=== PATIENT | female | born 1945 | race Caucasian/White ===

== ENCOUNTER → 2023-01-21 | Outpatient (CLI) | payer BC, MEDICARE | LOC: ORTHO 10:15 | PROVIDERS: ATTEND Orthopaedic Surgery | DX: M16.12 Unilateral primary osteoarthritis, left hip (principal) | CPT/HCPCS: 99213 ==

== ENCOUNTER 2023-01-26 08:30 | Outpatient (CLI) | payer BC, MEDICARE ==
[~2023-01-26] VITALS: Ht 157.4 cm; Wt 76.5 kg
[2023-01-26] MEDS ORDERED: TRAM50TA3 PO (08:44)
[2023-01-26] MEDS ORDERED: LISI1TAB44 PO (08:44)
[2023-01-26 10:47] LABS: BASOPHILS % (AUTO) 0 % (0-10); EOSINOPHILS # (AUTO) 0.1 10^3/uL (0.0-0.3); EOSINOPHILS % (AUTO) 1 % (0-10); HEMATOCRIT 44 % (35-52); HEMOGLOBIN 14.4 g/dL (11.5-16.0); LYMPHOCYTES # (AUTO) 2.5 10^3/uL (1.0-4.0); LYMPHOCYTES % (AUTO) 33 % (12-44); MEAN CORPUSCULAR HEMOGLOBIN 31 pg (25-34); MEAN CORPUSCULAR HGB CONC 33 g/dL (32-36); MEAN CORPUSCULAR VOLUME 94 fL (80-99); MEAN PLATELET VOLUME 10.1 fL (9.0-12.2); MONOCYTES # (AUTO) 0.5 10^3/uL (0.0-1.0); MONOCYTES % (AUTO) 7 % (0-12); NEUTROPHILS # (AUTO) 4.5 10^3/uL (1.8-7.8); NEUTROPHILS % (AUTO) 59 % (42-75); PLATELET COUNT 273 10^3/uL (130-400); WHITE BLOOD COUNT 7.7 10^3/uL (4.3-11.0)
[2023-01-26 10:48] LABS: BILIRUBIN,URINE NEGATIVE (NEGATIVE); CLARITY,URINE CLOUDY; COLOR,URINE YELLOW; GLUCOSE, URINE (UA) NEGATIVE (NEGATIVE); KETONES,URINE NEGATIVE (NEGATIVE); LEUKOCYTE ESTERASE ,URINE 2+ (NEGATIVE); NITRITE,URINE NEGATIVE (NEGATIVE); PROTEIN,URINE NEGATIVE (NEGATIVE)
--- NOTE | 2023-01-26 10:56 | Diagnostic Imaging Report ---
INDICATION: Preoperative evaluation prior to left hip replacement COMPARISON: None FINDINGS: Frontal and lateral views of the chest demonstrate normal heart size and pulmonary vascularity. The lungs are clear. There are no signs of infiltrate, pleural effusions or pneumothoraces. The visualized osseous structures show no acute abnormalities. IMPRESSION: 1. No acute process. No signs of infiltrates, effusions or pneumothoraces. Dictated by: Dictated on workstation # [id number]
[2023-01-26 10:58] LABS: POTASSIUM 3.7 MMOL/L (3.6-5.0)
[2023-01-26 10:59] LABS: CALCIUM 9.9 MG/DL (8.5-10.1)
[2023-01-26 11:02] LABS: RBC,URINE RARE /HPF
[2023-01-26 11:03] VITALS: BP 139/82
[2023-01-26 11:03] LABS: BACTERIA,URINE LARGE /HPF; CREATININE SERUM 0.83 MG/DL (0.60-1.30); WBC,URINE 25-50 /HPF
--- NOTE | 2023-01-26 19:52 | Diagnostic Imaging Report ---
INDICATION: LEFT HIP ARTROPLASTY TECHNIQUE: 2 views of the left hip. CORRELATION STUDY: None FINDINGS: There is essentially complete obliteration of the left hip joint. There is marked sclerosis and cystic change about the acetabulum and femoral head. There is partial collapse of the superior femoral head suggesting osteonecrosis. The remainder of the osseous structures otherwise intact. Visualized left hemipelvis unremarkable. Rather significant atherosclerotic vascular calcification is noted. IMPRESSION: 1. Severely advanced osteoarthritic change left hip with essentially complete absence of joint space. Essentially zhfj-ui-ilek present. 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 Dictated by: Dictated on workstation # [id number]
== END 2023-01-26 12:14 ==
LOC: PREOP 08:30
PROVIDERS: ATTEND Orthopaedic Surgery
DX: Z01.818 Encounter for other preprocedural examination (principal); M16.12 Unilateral primary osteoarthritis, left hip
CPT/HCPCS: 36415; 71046; 73502; 80048; 81000; 85025; 87077; 87081; 87088; 93005

== ENCOUNTER 2023-02-02 06:03 | Day surgery (SDC) | payer BC, MEDICARE ==
[~2023-02-02] VITALS: Ht 157.4 cm; Wt 76.5 kg
[~2023-02-02 06:03] MED LIST: LISI1TAB44 PO; TRAM50TA3 PO
[2023-02-02 06:08] VITALS: BP 154/89
[2023-02-02] MEDS ORDERED: LACTATED RINGERS 1,000 ML IV PRN (06:15)
[2023-02-02] MEDS ORDERED: ceFAZolin INJECTION 2,000 MG in NS (IVPB) 50 ML IV ONE (06:15)
[2023-02-02] MEDS ORDERED: ROCURONIUM 50 MG/5 ML (ZEMURON) VIAL IV ONE (06:57)
[2023-02-02] MEDS ORDERED: ONDANSETRON 4 MG/2 ML (SDV) Z0FRAN ONE (06:57)
[2023-02-02] MEDS ORDERED: proPOfol 200 MG/20 ML (DIPRIVAN) VIAL IV ONE (06:57)
[2023-02-02] MEDS ORDERED: LIDOCAINE PF 2% 5 ML (XYLOCAINE) VIAL ONE (06:57)
[2023-02-02] MEDS ORDERED: fentaNYL INJ 100 MCG/2 ML AMP ONE (06:58)
[2023-02-02] MEDS ORDERED: MIDAZOLAM 2 MG/2 ML (VERSED) VIAL ONE (06:58)
== END 2023-02-02 07:25 | disposition home or self-care (01) ==
LOC: SDC 06:03 → EDSTATUS 07:30
PROVIDERS: ATTEND Orthopaedic Surgery
DX: M16.12 Unilateral primary osteoarthritis, left hip (principal); Z53.09 Procedure and treatment not carried out because of other contraindication; E11.9 Type 2 diabetes mellitus without complications
CPT/HCPCS: 36415; 82947; 83036

== ENCOUNTER 2023-02-09 06:09 | Day surgery (SDC) | payer BC, MEDICARE ==
[2023-02-09] VITALS (12 sets, daily range): BP systolic 124–158; BP diastolic 57–83
[~2023-02-09] VITALS: Ht 157.4 cm; Wt 76.5 kg
[2023-02-09] MEDS: LACTATED RINGERS 1,000 ML IV PRN ×2 (06:00→08:37)
[2023-02-09] MEDS ORDERED: ceFAZolin INJECTION 2,000 MG ONE (06:34)
[2023-02-09] MEDS ORDERED: NS (IVPB) 50 ML ONE (06:35)
[2023-02-09] MEDS ORDERED: fentaNYL INJ 100 MCG/2 ML AMP ONE (07:05)
[2023-02-09] MEDS ORDERED: ONDANSETRON 4 MG/2 ML (SDV) Z0FRAN ONE (07:05)
[2023-02-09] MEDS ORDERED: LIDOCAINE PF 2% 5 ML (XYLOCAINE) VIAL ONE (07:05)
[2023-02-09] MEDS ORDERED: proPOfol 200 MG/20 ML (DIPRIVAN) VIAL IV ONE (07:05)
[2023-02-09] MEDS ORDERED: ROCURONIUM 50 MG/5 ML (ZEMURON) VIAL IV ONE (07:05)
[2023-02-09] MEDS ORDERED: GLYCOPYRROLATE 0.2 MG/ML (ROBINUL) 2 ML VIAL ONE (07:05)
[2023-02-09] MEDS ORDERED: NEOSTIGMINE (BLOXIVERZ ) 1 MG/1ML 10 ML VIAL ONE (07:06)
[2023-02-09] MEDS ORDERED: ceFAZolin INJECTION 2,000 MG in NS (IVPB) 50 ML IV ONE (07:30)
[2023-02-09] MEDS ORDERED: TRANEXAMIC ACID 100 MG/ML 10 ML INJECTION ONE (07:35)
[2023-02-09] MEDS ORDERED: ESMOLOL 100 MG/10 ML (BREVIBLOC) VIAL ONE (07:58)
[2023-02-09] MEDS ORDERED: HYDROmorphone 2 MG/ML VIAL (DILAUDID) ONE (08:03)
[2023-02-09] MEDS ORDERED: SEVOFLURANE (ULTANE) 15 ML INHAL SOLN ONE ×4 (08:16→09:01)
[2023-02-09] MEDS ORDERED: BUPIVACAINE 0.5% 30 ML (SENSORCAINE) VIAL ONE (08:17)
--- NOTE | 2023-02-09 09:38 | Operative Report - Ortho ---
Operative Report Surgeon (s)/Grocery Supervisor (s) Surgeon SHAGUFTA PALMER MD Grocery Supervisor n/a Pre-Operative Diagnosis Left Hip Primary Osteoarthritis Post-Operative Diagnosis same Operative Report Date of Procedure: Feb 09, 2023 Name of Procedure Performed: Left Total Hip Arthroplasty Description & Findings After obtaining informed consent and marking the patient in the preoperative holding area, the patient did receive antibiotics and was taken to the operating room. General anesthesia was induced and patient was positioned in the lateral decubitus position with the left side up. Left lower extremity was prepped and draped in the usual sterile fashion. Surgical timeout was taken. Posterolateral approach was utilized. Capsule and external rotators were taken down in one layer. Hip was dislocated without difficulty. Femoral neck osteotomy was performed and femoral head was removed. Acetabulum was exposed. Labrum and soft tissue was removed from the acetabulum. Sequential reaming was began beginning with a 43 mm reamer and reaming to a 50 mm. 50 mm trial was placed and had good fit. Trial was removed and the acetabulum was lavaged with normal saline; a 50 mm cup was impacted into place and had excellent press fit. A polyethylene liner was put into place and impacted to lock; locking was verified with a freer. Attention was turned to the femoral side, a cookie cutter osteotome was used to removed bone near the greater trochanter. Canal finder was inserted followed by the lateralizing reamer. Sequential broaching was began with a 0 and was broached to a 5. Trial 127 degree neck and neutral 32 mm head were put into place. Leg lengths were grossly equal; the hip was stable in position of sleep, but had some instability in flexion and internal rotation. Head was exchanged for a +4 mm and this improved the stability. This was accepted. Hip was dislocated. Trial components were removed and the canal was irrigated. A size 5 Accolade II was impacted into place and set at the same level as the broach. A +4 32 mm ceramic head was impacted onto the kent taper of the stem. Hip was once again located and found to have grossly equal leg lengths with stability in position of sleep as well as flexion and internal rotation. Dilute betadine soak was performed. Hip was irrigated. Capsular layer was repaired with #2 Fiberwire. The fascial layer was closed with #2 StrataFix. The subcutaneous layer was closed with 2-0 Vicryl. Skin was closed with 3-0 v-loc. Wound was dressed with steri-strips, xeroform, 4x4s, ABD, and tape. Patient was placed in abduction pillow and transferred to his hospital bed without difficulty and was stable to the recovery room. Anesthesia Type General Estimated Blood Loss 500 mL Specimen(s) collected/removed None SHAGUFTA PALMER MD Feb 09, 2023 09:38
[2023-02-09] MEDS ORDERED: HYDROmorphone 2 MG/ML VIAL (DILAUDID) IV ONE (09:45)
[2023-02-09] MEDS ORDERED: morphine INJ 10 MG/ML 1ML (SYR OR VIAL) IVP ONE (09:45)
[2023-02-09] MEDS ORDERED: ONDANSETRON 4 MG/2 ML (SDV) Z0FRAN IVP PRN ×2 (09:45→11:30)
--- NOTE | 2023-02-09 10:21 | Consultation ---
HPI History of Present Illness: HPI/Chief Complaint Chief complaint: Medical management following left hip replacement uncomplicated by Dr. Mckeon HPI: This is a 77-year-old female who presented to room 416 following an uncomplicated left total hip replacement. She has a recent history of new diabetes so we will initiate diabetic education while she is here. Glucometer checks will be ordered. Patient reports no pain currently or nausea. Source: patient Exam Limitations: no limitations Date Seen 02/09/23 Attending Physician Suzan Denton DO PCP Admitting Physician: Ke Mckeon MD Attending Physician: Ke Mckeon MD Referring Physician Date of Admission Home Medications & Allergies Home Medications Reviewed patient Home Medication Reconciliation performed by pharmacy medication reconciliations avionics systems technician and/or nursing. Patients Allergies have been reviewed. Allergies Allergies Coded Allergies No Known Drug Allergies (Unverified01/26/23) Past Marpbkb-Poeweo-Rphtra Hx Past Med/Social Hx: Reviewed Nursing Past Med/Soc Hx, Reviewed and Corrections made Patient Social History Marrital Status: Employed/Student: employed Alcohol Use: Denies Use Recreational Drug Use: No Smoking Status: Former Smoker Former Smoker, Quit: Jan 26, 1983 2nd Hand Smoke Exposure: No Recent Foreign Travel: No Contact w/other who traveled: No Recent Hopitalizations: No Seasonal Allergies Seasonal Allergies: No Past Medical History Surgeries: Adenoidectomy, Liver Transplant, Tonsillectomy Currently Using CPAP: No Cardiac: Hypertension Sexually Transmitted Disease: No HIV/AIDS: No Female Reproductive Disorders: Denies Hysterectomy Genitourinary: Kidney Stones Musculoskeletal: Arthritis, Fractures Endocrine: Diabetes, Non-Insulin dep Are Your Blood Sugars Over 250: No History of Blood Disorders: No Review of Systems Constitutional: see HPI, malaise, weakness Musculoskeletal: joint pain Physical Exam Physical Exam Vital Signs Vital Signs - First Documented 02/09/23 06:00 Temp 36.7 Pulse 83 Resp 18 B/P (MAP) 150/83 (105) Pulse Ox 98 O2 Delivery Room Air Capillary Refill : Less Than 3 Seconds Height, Weight, BMI Height: '" Weight: lbs. oz. kg; 30.87 BMI Method: General Appearance: No Apparent Distress, WD/WN Eyes: Bilateral Eye Normal Inspection, Bilateral Eye PERRL HEENT: PERRL/EOMI, Normal ENT Inspection, Pharynx Normal Neck: Full Range of Motion, Normal Inspection, Non Tender, Supple, Carotid Bruit Respiratory: Chest Non Tender, Lungs Clear, Normal Breath Sounds, No Accessory Muscle Use, No Respiratory Distress Cardiovascular: Regular Rate, Rhythm, No Edema, No Gallop, No JVD, No Murmur, Normal Peripheral Pulses Gastrointestinal: Normal Bowel Sounds, No Organomegaly, No Pulsatile Mass, Non Tender, Soft Back: Normal Inspection, No CVA Tenderness, No Vertebral Tenderness Extremity: Normal Capillary Refill, Normal Inspection, Non Tender, No Calf Tend erness, No Pedal Edema, Other (limited ROM legs post op) Neurologic/Psychiatric: Alert, Oriented x3, No Motor/Sensory Deficits, Normal Mood/Affect Skin: Normal Color, Warm/Dry Lymphatic: No Adenopathy Results Results/Procedures Labs Patient resulted labs reviewed. Assessment/Plan Assessment and Plan Assess & Plan/Chief Complaint Assessment: Status post left hip replacement uncomplicated by Dr. Mckeon Hypertension Recent diagnosis of diabetes Plan: Diabetes education Accu-Cheks Monitor morning labs Pain control PT and OT YARELIS SIMON DO Feb 09, 2023 10:21
[2023-02-09] MEDS ORDERED: ACETAMINOPHEN 500 MG TAB (TYLENOL) PO PRN (11:30)
[2023-02-09] MEDS ORDERED: MILK OF MAGNESIA 400 MG/5 ML 30 ML UDC PO PRN (11:30)
[2023-02-09] MEDS ORDERED: BISACODYL 5 MG (DULCOLAX) TABLET PO PRN (11:30)
[2023-02-09] MEDS ORDERED: morphine INJ 4 MG/ML 1 ML (VIAL/SYRINGE) IVP PRN (11:30)
[2023-02-09] MEDS: 1/2 NS IV SOLUTION 1,000 ML IV SCH (12:26)
[2023-02-09] MEDS: ceFAZolin INJECTION 2,000 MG in NS (IVPB) 50 ML IV SCH ×2 (13:14→20:14)
--- NOTE | 2023-02-09 13:56 | Physical Therapy Evaluation ---
PT Evaluation-General Medical Diagnosis Admission Date February 09, 2023 Medical Diagnosis: left hip OA Onset Date: Feb 09, 2023 Therapy Diagnosis Therapy Diagnosis: impaired mobility Precautions Precautions/Isolations: Standard Precautions Weight Bear Status Right Lower Extremity: Right Full Weight Bearing Left Lower Extremity: Left Weight Bearing/Tolerated Referral Physician: Mike Reason for Referral: Evaluation/Treatment Medical History Pertinent Medical History: DM, HTN Current History s/p elective left THR Reviewed History: Yes Social History Home: Single Level Current Living Status: Spouse Prior Prior Level of Function SCALE: Activities may be completed with or without assistive devices. 6-Wpyjpmemrr-zxtwjhr completes the activity by him/herself with no assistance from a helper. 5-Set-up or Clean-up Assistance-helper sets up or cleans up; patient completes activity. [place] assists only prior to or following the activity. 4-Supervision or Touching Assistance-helper provides verbal cues and/or touching/steadying and/or contact guard assistance as patient completes a ctivity. Assistance may be provided throughout the activity or intermittently. 3-Partial/Moderate Assistance-helper does LESS THAN HALF the effort. [place] lifts, holds or supports trunk or limbs, but provides less than half the effort. 2-Substantial/Maximal Assistance-helper does MORE THAN HALF the effort. [place] lifts or holds trunk or limbs and provides more than half the effort. 7-Opermiubg-ntdwvd does ALL the effort. Patient does none of the effort to complete the activity. Or, the assistance of 2 or more helpers is required for the patient to complete the activity. If activity was not attempted, code reason: 7-Patient Refused. 9-Not Applicable-not attempted and the patient did not perform the activity before the current illness, exacerbation or injury. 10-Not Attempted due to Environmental Limitations-(lack of equipment, weather restraints, etc.). 88-Not Attempted due to Medical Conditions or Safety Concerns. Bed Mobility: 6 Transfers (B,C,W/C): 6 Gait: 6 Stairs: 6 Indoor Mobility (Ambulation): Independent Stairs: Independent Prior Devices Use: None PT Evaluation-Current Subjective Patient is very agreeable to participate with therapy. Pain Numeric Pain Scale: 5-Moderate Pain Location: Left Location Body Site: Hip Pain Description: Acute Objective Patient Orientation: Normal For Age Attachments: Patiño Catheter, IV ROM/Strength ROM Lower Extremities left hip precautions/right LE WFL Strength Lower Extremities left LE 3+/5 grossly/right LE 4/5 grossly Integumentary/Posture Bladder Incontinence: Patiño Cath Posture WFL Neuromuscular (Tone, Coordination, Reflexes) grossly intact Sensory Vision: Functional Hearing: Functional Transfers Sit to Lying (QC): 3 Lying to Sitting/Side of Bed(Q: 3 Sit to Stand (QC): 4 Gait Mode of Locomotion: Walk Anticipated Mode of Locomotion: Walk Walk 10 feet (QC): 4 Walk 50 ft with 2 Turns(QC): 4 Gait Assistive Device: FWW Comments/Gait Description slow, step to pattern Balance Sitting Static: Normal Sitting Dynamic: Normal Standing Static: Fair Standing Dynamic: Fair Assessment/Needs Patient will benefit from skilled PT to address functional strength and mobility to improve current LOF to safely return to home at maximum LOF. Rehab Potential: Good PT Longterm Goals Application Release Manager Goals PT Application Release Manager Goals Time Frame: Feb 14, 2023 Roll Left & Right (QC): 6 Sit to Lying (QC): 6 Lying-Sitting on Side/Bed(QC): 6 Sit to Stand (QC): 6 Chair/Ack-wh-Qfiog Xfer(QC): 6 Toilet Transfer (QC): 6 Walk 10 feet (QC): 6 Walk 50ft with 2 Turns (QC): 6 Walk 150 ft (QC): 6 PT Plan Treatment/Plan Treatment Plan: Continue Plan of Care Treatment Plan: Bed Mobility, Education, Functional Activity Elena, Functional Strength, Gait, Safety, Therapeutic Exercise, Transfers Treatment Duration: Feb 14, 2023 Frequency: 11 times per week Estimated Hrs Per Day: .5 hour per day Patient and/or Family Agrees t: Yes Time Time In: 1328 Time Out: 1346 DATE: Feb 09, 2023 Total Billed Treatment Time: 18 [facility] R[facility]Y [facility] PT Feb 09, 2023 13:56
[2023-02-09] MEDS: inSUlin ASPART (NovoLOG) 1 UNIT/0.01 ML (CHARGE PER UNIT) SC SCH ×2 (16:44→20:17)
[2023-02-09] MEDS: CELECOXIB 100 MG (CeleBREX) CAP PO SCH (20:13)
[2023-02-09] MEDS: DOCUSATE SODIUM 100 MG (COLACE) CAP PO SCH (20:14)
[2023-02-09] MEDS: ASPIRIN E.C. 81 MG (ECOTRIN) TAB PO SCH (20:15)
[2023-02-10] MEDS: ceFAZolin INJECTION 2,000 MG in NS (IVPB) 50 ML IV SCH (01:23)
[2023-02-10] MEDS: 1/2 NS IV SOLUTION 1,000 ML IV SCH (01:23)
[2023-02-10 03:08] VITALS: BP 117/59
[2023-02-10 05:42] LABS: BASOPHILS % (AUTO) 0 % (0-10); EOSINOPHILS % (AUTO) 0 % (0-10); HEMATOCRIT 32 % (35-52); HEMOGLOBIN 10.5 g/dL (11.5-16.0); LYMPHOCYTES # (AUTO) 1.9 10^3/uL (1.0-4.0); LYMPHOCYTES % (AUTO) 16 % (12-44); MEAN CORPUSCULAR HEMOGLOBIN 31 pg (25-34); MEAN CORPUSCULAR HGB CONC 33 g/dL (32-36); MEAN CORPUSCULAR VOLUME 94 fL (80-99); MEAN PLATELET VOLUME 10.2 fL (9.0-12.2); MONOCYTES % (AUTO) 8 % (0-12); NEUTROPHILS # (AUTO) 8.8 10^3/uL (1.8-7.8); NEUTROPHILS % (AUTO) 75 % (42-75); PLATELET COUNT 230 10^3/uL (130-400); WHITE BLOOD COUNT 11.8 10^3/uL (4.3-11.0)
[2023-02-10 05:48] LABS: ALBUMIN 3.1 GM/DL (3.2-4.5)
[2023-02-10 05:49] LABS: POTASSIUM 3.7 MMOL/L (3.6-5.0)
[2023-02-10 05:51] LABS: TOTAL PROTEIN 5.3 GM/DL (6.4-8.2)
[2023-02-10 05:53] LABS: BILIRUBIN,TOTAL 0.7 MG/DL (0.1-1.0)
[2023-02-10 05:55] LABS: CREATININE SERUM 0.72 MG/DL (0.60-1.30)
[2023-02-10] MEDS: inSUlin ASPART (NovoLOG) 1 UNIT/0.01 ML (CHARGE PER UNIT) SC SCH ×4 (06:21→20:24)
[2023-02-10] MEDS: MULTIVIT W/MINERALS TAB (THERAGRAN M) PO SCH (06:21)
[2023-02-10 07:30] VITALS: BP 112/56
[2023-02-10] MEDS ORDERED: ASPIRIN 325 MG (5 GR) TABLET PO SCH (08:00)
[2023-02-10] MEDS: HydroCHLOROthiazide CAP/TABLET 12.5 MG TAB PO SCH (09:13)
[2023-02-10] MEDS: lisINopril 10 MG (PRINIVIL) TABLET PO SCH (09:13)
[2023-02-10] MEDS: ASPIRIN E.C. 81 MG (ECOTRIN) TAB PO SCH ×2 (09:13→20:23)
[2023-02-10] MEDS: CELECOXIB 100 MG (CeleBREX) CAP PO SCH ×2 (09:13→20:24)
[2023-02-10] MEDS: DOCUSATE SODIUM 100 MG (COLACE) CAP PO SCH ×2 (09:13→20:23)
--- NOTE | 2023-02-10 09:28 | Progress Note - Ortho ---
Progress Note Subjective Date of Exam 02/10/23 Chief Complaint POD #1 L SANTIAGO HPI/Events since last exam doing well overall, was up and walked yesterday after surgery, pain controlled Review of Systems - Allergies: Coded Allergies: No Known Drug Allergies (Unverified , 01/26/23) Home Meds Reported Medications Lisinopril/Hydrochlorothiazide (Lisinopril-Hctz 10-12.5 mg Tab) 10 Mg-12.5 Mg Tablet, 1 EACH PO DAILY, TAB 01/26/23 Discontinued Reported Medications Tramadol HCl (Tramadol HCl) 50 Mg Tablet, 50 MG PO TIDAC, TAB 01/26/23 Objective Exam L Hip: Dressing C/D/I, +DF of ankle, no s/s of DVT Vital Signs Vital Signs Date Time Temp Pulse Resp B/P (MAP) Pulse Ox O2 Delivery O2 Flow Rate FiO2 02/10/23 07:30 36.7 83 18 112/56 (74) 93 Room Air 02/10/23 03:08 37.1 83 18 117/59 (78) 93 Room Air 0.00 0.00 02/09/23 23:03 36.5 92 18 124/57 (79) 95 Room Air 0.00 0.00 02/09/23 20:10 Room Air 02/09/23 19:16 36.8 89 18 124/61 (82) 94 Room Air 02/09/23 16:45 36.8 87 18 135/75 (95) 93 Room Air 02/09/23 15:56 Room Air 02/09/23 10:35 36.2 78 17 158/79 (105) 100 Nasal Cannula 2.00 02/09/23 10:30 Nasal Cannula 2.00 02/09/23 10:30 36.8 18 143/65 (91) 98 Nasal Cannula 2.00 02/09/23 10:20 18 150/68 (95) 98 Nasal Cannula 2.00 02/09/23 10:16 Nasal Cannula 2.00 02/09/23 10:11 Nasal Cannula 2.00 02/09/23 10:10 18 140/63 (88) 93 Room Air 02/09/23 10:08 Room Air 02/09/23 10:00 OxyMask 3.00 02/09/23 10:00 18 148/63 (91) 99 OxyMask 3.00 02/09/23 09:59 OxyMask 6.00 02/09/23 09:50 18 135/64 (87) 98 OxyMask 6.00 02/09/23 09:50 OxyMask 6.00 02/09/23 09:40 OxyMask 6.00 02/09/23 09:40 18 133/64 (87) 98 OxyMask 6.00 02/09/23 09:30 OxyMask 6.00 02/09/23 09:30 37.5 16 135/69 (91) 98 OxyMask 6.00 I & O 02/10/23 07:00 Intake Total 3430 ml Output Total 2200 ml Balance 1230 ml Lab Results Laboratory Tests 02/09/23 16:27: Glucometer 196H 02/09/23 20:14: Glucometer 164H 02/10/23 05:09: Glucometer 201H 02/10/23 05:22: White Blood Count 11.8H, Red Blood Count 3.34L, Hemoglobin 10.5L, Hematocrit 32L , Mean Corpuscular Volume 94, Mean Corpuscular Hemoglobin 31, Mean Corpuscular Hemoglobin Concent 33, Red Cell Distribution Width 12.4, Platelet Count 230, Mean Platelet Volume 10.2, Immature Granulocyte % (Auto) 1, Neutrophils (%) (Auto) 75, Lymphocytes (%) (Auto) 16, Monocytes (%) (Auto) 8, Eosinophils (%) (Auto) 0, Basophils (%) (Auto) 0, Neutrophils # (Auto) 8.8H, Lymphocytes # (Auto) 1.9, Monocytes # (Auto) 1.0, Eosinophils # (Auto) 0.0, Basophils # (Auto) 0.0, Immature Granulocyte # (Auto) 0.1, Sodium Level 133L, Potassium Level 3.7, Chloride Level 103, Carbon Dioxide Level 22, Anion Gap 8, Blood Urea Nitrogen 6L , Creatinine 0.72, Estimat Glomerular Filtration Rate 87, BUN/Creatinine Ratio 8, Glucose Level 204H, Calcium Level 8.0L, Corrected Calcium 8.7, Total Bilirubin 0.7, Aspartate Amino Transf (AST/SGOT) 17, Alanine Aminotransferase (ALT/SGPT) 14, Alkaline Phosphatase 72, Total Protein 5.3L, Albumin 3.1L Microbiology 02/09/23 MRSA Screen - Final, Complete MRSA not isolated Imaging Postop AP pelvis reviewed and demonstrated appropriate position of components without complication Assessment and Plan Assessment L Hip OA s/p SANTIAGO Problem List L Hip OA s/p SANTIAGO Plan PT/OT Posterior hip precautions DVT prophylaxis Plan for home tomorrow Final Diagonsis L Hip OA s/p SANTIAGO Level of the visit: Level 3 (postop global) SHAGUFTA PALMER MD Feb 10, 2023 09:28
--- NOTE | 2023-02-10 10:08 | Physical Therapy Daily Note ---
PT Daily Note-Current Subjective Patient agrees to PT. Pain Numeric Pain Scale: 5-Moderate Pain Location: Left Location Body Site: Hip Pain Description: Acute Section J - Health Conditions 1. Rarely or not at all 2. Occasionally 3. Frequently 4. Almost constantly 8. Unable to answer Pain Effect on Sleep: 1 Pain Interference with Therapy: 1 Pain Interference w/Day-to-Day: 1 Mental Status Patient Orientation: Normal For Age Transfers SCALE: Activities may be completed with or without assistive devices. 0-Zyxzzmwbao-gbinvks completes the activity by him/herself with no assistance from a helper. 5-Set-up or Clean-up Assistance-helper sets up or cleans up; patient completes activity. [place] assists only prior to or following the activity. 4-Supervision or Touching Assistance-helper provides verbal cues and/or touching/steadying and/or contact guard assistance as patient completes activity. Assistance may be provided throughout the activity or intermittently. 3-Partial/Moderate Assistance-helper does LESS THAN HALF the effort. [place] lifts, holds or supports trunk or limbs, but provides less than half the effort. 2-Substantial/Maximal Assistance-helper does MORE THAN HALF the effort. [place] lifts or holds trunk or limbs and provides more than half the effort. 9-Yfeagyefk-mddcox does ALL the effort. Patient does none of the effort to complete the activity. Or, the assistance of 2 or more helpers is required for the patient to complete the activity. If activity was not attempted, code reason: 7-Patient Refused. 9-Not Applicable-not attempted and the patient did not perform the activity before the current illness, exacerbation or injury. 10-Not Attempted due to Environmental Limitations-(lack of equipment, weather restraints, etc.). 88-Not Attempted due to Medical Conditions or Safety Concerns. Lying to Sitting/Side of Bed(Q: 6 Sit to Stand (QC): 5 Chair/Exw-lz-Bthsi Xfer(QC): 5 Weight Bearing Right Lower Extremity: Right Full Weight Bearing Left Lower Extremity: Left Weight Bearing/Tolerated Gait Training Distance: 300' Walk 10 feet (QC): 5 Walk 50 ft with 2 Turns(QC): 5 Walk 150 ft (QC): 5 Stair Training Stair Training: Handrails/: 2 handrails #of Steps: 4 1 Step (curb) (QC): 4 4 Steps (QC): 4 Stairs: Pattern: Step to Exercises Supine Ex: Ankle pumps, Quad Set, Heel Slides Supine Reps: 12 Seated Therapy Exercises: Long arc quads Seated Reps: 15 Assessment Patient progressing with treatment plan. Patient is up in recliner with needs met. Patient to dismiss to home tomorrow. PT [employer] Goals Senior Living Goals PT [employer] Goals Time Frame: Feb 14, 2023 Roll Left & Right (QC): 6 Sit to Lying (QC): 6 Lying-Sitting on Side/Bed(QC): 6 Sit to Stand (QC): 6 Chair/Nbr-ni-Bsbui Xfer(QC): 6 Toilet Transfer (QC): 6 Walk 10 feet (QC): 6 Walk 50ft with 2 Turns (QC): 6 Walk 150 ft (QC): 6 PT Plan Treatment/Plan Treatment Plan: Continue Plan of Care Treatment Plan: Bed Mobility, Education, Functional Activity Elena, Functional Strength, Gait, Safety, Therapeutic Exercise, Transfers Treatment Duration: Feb 14, 2023 Frequency: 11 times per week Estimated Hrs Per Day: .5 hour per day Patient and/or Family Agrees t: Yes Time Time In: 930 Time Out: 953 DATE: Feb 10, 2023 Total Billed Treatment Time: 23 Total Billed Treatment 1 visit FA x 2 23 min RANDY HILL PT Feb 10, 2023 10:08
--- NOTE | 2023-02-10 10:25 | Progress Note ---
Subjective Date Seen by a Provider: Feb 10, 2023 Time Seen by a Provider: 10:00 Subjective/Events-last exam Patient doing really well Working with therapy Pain is controlled check meds and labs Blood sugars are reasonable we will follow-up with PCP for diabetes Review of Systems General: Fatigue, Malaise Musculoskeletal: leg pain Objective Exam Last Set of Vital Signs Vital Signs Date Time Temp Pulse Resp B/P (MAP) Pulse Ox O2 Delivery O2 Flow Rate FiO2 02/10/23 07:30 36.7 83 18 112/56 (74) 93 Room Air 02/10/23 03:08 0.00 0.00 Capillary Refill : Less Than 3 Seconds I&O Intake and Output 02/10/23 00:00 Intake Total 2180 ml Output Total 1900 ml Balance 280 ml Intake Oral 1080 ml IV Total 1100 ml Output Urine Total 1400 ml Estimated Blood Loss 500 ml General: Alert, Oriented X3, Cooperative, No Acute Distress Lungs: Clear to Auscultation, Normal Air Movement Heart: Regular Rate, Normal S1, Normal S2, No Murmurs Psych/Mental Status: Mental Status NL, Mood NL Results Lab Laboratory Tests 02/09/23 16:27: Glucometer 196H 02/09/23 20:14: Glucometer 164H 02/10/23 05:09: Glucometer 201H 02/10/23 05:22: White Blood Count 11.8H, Red Blood Count 3.34L, Hemoglobin 10.5L, Hematocrit 32L , Mean Corpuscular Volume 94, Mean Corpuscular Hemoglobin 31, Mean Corpuscular Hemoglobin Concent 33, Red Cell Distribution Width 12.4, Platelet Count 230, Mean Platelet Volume 10.2, Immature Granulocyte % (Auto) 1, Neutrophils (%) (Auto) 75, Lymphocytes (%) (Auto) 16, Monocytes (%) (Auto) 8, Eosinophils (%) (Auto) 0, Basophils (%) (Auto) 0, Neutrophils # (Auto) 8.8H, Lymphocytes # (Auto) 1.9, Monocytes # (Auto) 1.0, Eosinophils # (Auto) 0.0, Basophils # (Auto) 0.0, Immature Granulocyte # (Auto) 0.1, Sodium Level 133L, Potassium Level 3.7, Chloride Level 103, Carbon Dioxide Level 22, Anion Gap 8, Blood Urea Nitrogen 6L , Creatinine 0.72, Estimat Glomerular Filtration Rate 87, BUN/Creatinine Ratio 8 , Glucose Level 204H, Calcium Level 8.0L, Corrected Calcium 8.7, Total Bilirubin 0.7, Aspartate Amino Transf (AST/SGOT) 17, Alanine Aminotransferase (ALT/SGPT) 14, Alkaline Phosphatase 72, Total Protein 5.3L, Albumin 3.1L Microbiology 02/09/23 MRSA Screen - Final, Complete MRSA not isolated Assessment/Plan Assessment/Plan Assess & Plan/Chief Complaint Assessment: Status post left hip replacement uncomplicated by Dr. Mckeon Hypertension Recent diagnosis of diabetes Plan: Diabetes education Accu-Cheks Monitor morning labs Pain control PT and OT YARELIS SIMON DO Feb 10, 2023 10:25
[2023-02-10 11:46] VITALS: BP 117/59
--- NOTE | 2023-02-10 14:07 | Physical Therapy Daily Note ---
PT Daily Note-Current Subjective Patient agrees to PT. Pain Numeric Pain Scale: 5-Moderate Pain Location: Left Location Body Site: Hip Pain Description: Acute Section J - Health Conditions 1. Rarely or not at all 2. Occasionally 3. Frequently 4. Almost constantly 8. Unable to answer Pain Effect on Sleep: 1 Pain Interference with Therapy: 1 Pain Interference w/Day-to-Day: 1 Mental Status Patient Orientation: Normal For Age Transfers SCALE: Activities may be completed with or without assistive devices. 3-Ibkmaqwnru-fgiyiie completes the activity by him/herself with no assistance from a helper. 5-Set-up or Clean-up Assistance-helper sets up or cleans up; patient completes activity. [place] assists only prior to or following the activity. 4-Supervision or Touching Assistance-helper provides verbal cues and/or touching/steadying and/or contact guard assistance as patient completes activity. Assistance may be provided throughout the activity or intermittently. 3-Partial/Moderate Assistance-helper does LESS THAN HALF the effort. [place] lifts, holds or supports trunk or limbs, but provides less than half the effort. 2-Substantial/Maximal Assistance-helper does MORE THAN HALF the effort. [place] lifts or holds trunk or limbs and provides more than half the effort. 5-Ilosvstza-jifmhn does ALL the effort. Patient does none of the effort to complete the activity. Or, the assistance of 2 or more helpers is required for the patient to complete the activity. If activity was not attempted, code reason: 7-Patient Refused. 9-Not Applicable-not attempted and the patient did not perform the activity before the current illness, exacerbation or injury. 10-Not Attempted due to Environmental Limitations-(lack of equipment, weather restraints, etc.). 88-Not Attempted due to Medical Conditions or Safety Concerns. Sit to Lying (QC): 6 Lying to Sitting/Side of Bed(Q: 6 Sit to Stand (QC): 6 Toilet Transfer (QC): 6 Weight Bearing Right Lower Extremity: Right Full Weight Bearing Left Lower Extremity: Left Weight Bearing/Tolerated Gait Training Distance: 300' Walk 10 feet (QC): 5 Walk 50 ft with 2 Turns(QC): 5 Walk 150 ft (QC): 5 Gait Assistive Device: FWW slow, reciprocal pattern, slightly antalgic Exercises Supine Ex: Ankle pumps, Quad Set, Heel Slides Supine Reps: 15 Assessment Patient much improved this p.m. and returned to bed after independently toileting and brushing teeth. Plan dismissal to home tomorrow. PT Complaint Investigations Officer Goals Longterm Goals PT Complaint Investigations Officer Goals Time Frame: Feb 14, 2023 Roll Left & Right (QC): 6 Sit to Lying (QC): 6 Lying-Sitting on Side/Bed(QC): 6 Sit to Stand (QC): 6 Chair/Wgg-zs-Hozzw Xfer(QC): 6 Toilet Transfer (QC): 6 Walk 10 feet (QC): 6 Walk 50ft with 2 Turns (QC): 6 Walk 150 ft (QC): 6 PT Plan Treatment/Plan Treatment Plan: Continue Plan of Care Treatment Plan: Bed Mobility, Education, Functional Activity Elena, Functional Strength, Gait, Safety, Therapeutic Exercise, Transfers Treatment Duration: Feb 14, 2023 Frequency: 11 times per week Estimated Hrs Per Day: .5 hour per day Patient and/or Family Agrees t: Yes Time Time In: 1330 Time Out: 1355 DATE: Feb 10, 2023 Total Billed Treatment Time: 25 Total Billed Treatment 1 visit FA x 2 25 min RANDY HILL PT Feb 10, 2023 14:07
--- NOTE | 2023-02-10 14:22 | Occupational Therapy Eval ---
OT Evaluation-General/PLF Medical Diagnosis Admission Date Medical Diagnosis: left hip OA Onset Date: Feb 09, 2023 Therapy Diagnosis Therapy Diagnosis: s/p LTHA Precautions Precautions/Isolations: Standard Precautions Comments SANTIAGO precautions Weight Bear Status Weight Bearing Restriction: Weight Bearing/Tolerated Location Restriction: L LE Referral Physician: Mike Referral Reason: Self Care, Evaluation/Treatment Medical History Pertinent Medical History: DM, HTN Social History Home: Single Level Current Living Status: Spouse will be staying at daughter home at [place] ADL-Prior Level of Function SCALE: Activities may be completed with or without assistive devices. 8-Xwdlbpxnlw-gtqwjmv completes the activity by him/herself with no assistance from a helper. 5-Set-up or Clean-up Assistance-helper sets up or cleans up; patient completes activity. [place] assists only prior to or following the activity. 4-Supervision or Touching Assistance-helper provides verbal cues and/or touching/steadying and/or contact guard assistance as patient completes activity. Assistance may be provided throughout the activity or intermittently. 3-Partial/Moderate Assistance-helper does LESS THAN HALF the effort. [place] lifts, holds or supports trunk or limbs, but provides less than half the effort. 2-Substantial/Maximal Assistance-helper does MORE THAN HALF the effort. [place] lifts or holds trunk or limbs and provides more than half the effort. 9-Qugcgleyg-gmzwet does ALL the effort. Patient does none of the effort to complete the activity. Or, the assistance of 2 or more helpers is required for the patient to complete the activity. If activity was not attempted, code reason: 7-Patient Refused. 9-Not Applicable-not attempted and the patient did not perform the activity before the current illness, exacerbation or injury. 10-Not Attempted due to Environmental Limitations-(lack of equipment, weather restraints, etc.). 88-Not Attempted due to Medical Conditions or Safety Concerns. Self Care: Independent Functional Cognition: Independent DME/Equipment Comments Walk in shower. has a quality assurance advisor at home Drive Self: Yes OT Current Status Subjective Up in recliner, family present , agreeable to OT. Preferred name "FREYA" Mental Status/Objective Patient Orientation: Person, Place, Time, Situation Current Upper Extremity ROM BUE ROM WFLS Upper Extremity Coordination INTACT Upper Extremity Sensation INTACT Upper Extremity Strength WFLs ADL-Treatment Eating (QC): 6 Oral Hygiene (QC): 6 (sitting) Shower/Bathe Self (QC): 7 Upper Body Dressing (QC): 5 Lower Body Dressing (QC): 4 On/Off Footwear (QC): 4 (following tool instruciton) Toileting Hygiene (QC): 5 Education OT Patient Education: Correct positioning, Exercise program, Instructions to caregiver, Modified ADL techniques, Progress toward Goal/Update tx plan, Purpose of tx/functional activities, Reviewed precautions, Rehab process, Safety issues, Transfer techniques, Use of adapted equipment Teaching Recipient: Patient, Family Teaching Methods: Demonstration, Discussion Response to Teaching: Reinforcement Needed OT Scenic Arts Supervisor Goals Scenic Arts Supervisor Goals Eating (QC): 6 Oral Hygiene (QC): 6 Toileting Hygiene (QC): 6 Shower/Bathe Self (QC): 5 Upper Body Dressing (QC): 6 Lower Body Dressing (QC): 6 On/Off Footwear (QC): 6 1=Demonstrate adherence to instructed precautions during ADL tasks. 2=Patient will verbalize/demonstrate understanding of assistive devices/modifications for ADL. 3=Patient will improve strength/tolerance for activity to enable patient to perform ADL's. OT Education/Plan Problem List/Assessment Assessment: Decreased Activ Tolerance, Impaired Self-Care Skills Discharge Recommendations Plan/Recommendations: Continue POC Equpiment Recommendations-D/C: Hip Kit Treatment Plan/Plan of Care Treatment,Training & Education: Yes Patient would benefit from OT for education, treatment and training to promote independence in ADL's, mobility, safety and/or upper extremity function for ADL's. Plan of Care: ADL Retraining, Functional Mobility, Group Exercise/Act as Ind, UE Funct Exercise/Act Comment Patein recalls 3/3 S[place]O following evaluation Treatment Duration: Feb 14, 2023 Frequency: 3 times per week (3-5 times per week) Estimated Hrs Per Day: .25 hour per day Agreement: Yes Rehab Potential: Good Time Start Time: 11:12 Stop Time: 11:30 DATE: Feb 10, 2023 Total Time Billed (hr/min): 17 Billed Treatment Time EVM EVY HANKS OT Feb 10, 2023 14:22
--- NOTE | 2023-02-10 14:28 | Anesthesia-General Post-Op ---
General Patient Condition Mental Status/LOC: Same as Preop Cardiovascular: Satisfactory Nausea/Vomiting: Absent Respiratory: Satisfactory Pain: Controlled Complications: Absent Post Op Complications Complications None Follow Up Care/Instructions Patient Instructions None needed. Anesthesia/Patient Condition Patient Condition Patient is doing well, ambulating with assistance and no complaints, stable vital signs, no apparent adverse anesthesia problems. No complications reported per nursing. MICHAEL SPEARS DO Feb 10, 2023 14:28
[2023-02-10 15:27] VITALS: BP 108/65
[2023-02-10 19:37] VITALS: BP 116/69
[2023-02-10 23:16] VITALS: BP 115/65
[2023-02-11 03:25] VITALS: BP 112/67
[2023-02-11 06:05] LABS: BASOPHILS % (AUTO) 0 % (0-10); EOSINOPHILS % (AUTO) 0 % (0-10); HEMATOCRIT 30 % (35-52); LYMPHOCYTES # (AUTO) 1.6 10^3/uL (1.0-4.0); LYMPHOCYTES % (AUTO) 13 % (12-44); MEAN CORPUSCULAR HEMOGLOBIN 31 pg (25-34); MEAN CORPUSCULAR HGB CONC 33 g/dL (32-36); MEAN CORPUSCULAR VOLUME 94 fL (80-99); MEAN PLATELET VOLUME 10.3 fL (9.0-12.2); MONOCYTES % (AUTO) 8 % (0-12); NEUTROPHILS # (AUTO) 9.6 10^3/uL (1.8-7.8); NEUTROPHILS % (AUTO) 78 % (42-75); PLATELET COUNT 213 10^3/uL (130-400); WHITE BLOOD COUNT 12.3 10^3/uL (4.3-11.0)
[2023-02-11 06:13] LABS: ALBUMIN 3.1 GM/DL (3.2-4.5); POTASSIUM 3.8 MMOL/L (3.6-5.0)
[2023-02-11 06:14] LABS: CALCIUM 8.5 MG/DL (8.5-10.1)
[2023-02-11 06:15] LABS: TOTAL PROTEIN 5.6 GM/DL (6.4-8.2)
[2023-02-11 06:17] LABS: BILIRUBIN,TOTAL 0.9 MG/DL (0.1-1.0)
[2023-02-11 06:19] LABS: CREATININE SERUM 0.66 MG/DL (0.60-1.30)
[2023-02-11] MEDS: inSUlin ASPART (NovoLOG) 1 UNIT/0.01 ML (CHARGE PER UNIT) SC SCH ×2 (06:19→12:01)
[2023-02-11] MEDS: MULTIVIT W/MINERALS TAB (THERAGRAN M) PO SCH (06:19)
[2023-02-11] MEDS: HydroCHLOROthiazide CAP/TABLET 12.5 MG TAB PO SCH (07:47)
[2023-02-11] MEDS: DOCUSATE SODIUM 100 MG (COLACE) CAP PO SCH (07:47)
[2023-02-11] MEDS: ASPIRIN E.C. 81 MG (ECOTRIN) TAB PO SCH (07:47)
[2023-02-11] MEDS: CELECOXIB 100 MG (CeleBREX) CAP PO SCH (07:47)
[2023-02-11] MEDS: lisINopril 10 MG (PRINIVIL) TABLET PO SCH (07:47)
[2023-02-11 07:58] VITALS: BP 104/53
--- NOTE | 2023-02-11 08:58 | Progress Note ---
Subjective Date Seen by a Provider: Feb 11, 2023 Time Seen by a Provider: 09:00 Subjective/Events-last exam Patient doing really well Labs reviewed Blood sugars are improved She will have appointment with PCP to talk about treatment for diabetes Review of Systems General: Fatigue, Malaise Objective Exam Last Set of Vital Signs Vital Signs Date Time Temp Pulse Resp B/P (MAP) Pulse Ox O2 Delivery O2 Flow Rate FiO2 02/11/23 07:58 36.6 88 18 104/53 (70) 93 Room Air 02/11/23 03:25 0.00 0.00 Capillary Refill : Less Than 3 Seconds I&O Intake and Output 02/11/23 00:00 Intake Total 2450 ml Output Total 610 ml Balance 1840 ml Intake Oral 1400 ml IV Total 1050 ml Output Urine Total 600 ml Post Void Residual 10 ml # Voids 2 General: Alert, Oriented X3, Cooperative, No Acute Distress Lungs: Clear to Auscultation, Normal Air Movement Heart: Regular Rate, Normal S1, Normal S2, No Murmurs Psych/Mental Status: Mental Status NL, Mood NL Results Lab Laboratory Tests 02/10/23 11:32: Glucometer 230H 02/10/23 15:30: Glucometer 215H 02/10/23 20:15: Glucometer 217H 02/11/23 05:21: Glucometer 187H 02/11/23 05:50: White Blood Count 12.3H, Red Blood Count 3.22L, Hemoglobin 10.0L, Hematocrit 30L , Mean Corpuscular Volume 94, Mean Corpuscular Hemoglobin 31, Mean Corpuscular Hemoglobin Concent 33, Red Cell Distribution Width 12.4, Platelet Count 213, Mean Platelet Volume 10.3, Immature Granulocyte % (Auto) 1, Neutrophils (%) (Auto) 78H, Lymphocytes (%) (Auto) 13, Monocytes (%) (Auto) 8, Eosinophils (%) (Auto) 0, Basophils (%) (Auto) 0, Neutrophils # (Auto) 9.6H, Lymphocytes # (Auto) 1.6, Monocytes # (Auto) 1.0, Eosinophils # (Auto) 0.0, Basophils # (Auto) 0.0, Immature Granulocyte # (Auto) 0.1, Sodium Level 135, Potassium Level 3.8, Chloride Level 103, Carbon Dioxide Level 24, Anion Gap 8, Blood Urea Nitrogen 8, Creatinine 0.66, Estimat Glomerular Filtration Rate 91, BUN/Creatinine Ratio 12, Glucose Level 206H, Calcium Level 8.5, Corrected Calcium 9.2, Total Bilirubin 0.9, Aspartate Amino Transf (AST/SGOT) 18, Alanine Aminotransferase (ALT/SGPT) 9, Alkaline Phosphatase 69, Total Protein 5.6L, Albumin 3.1L Microbiology 02/09/23 MRSA Screen - Final, Complete MRSA not isolated Assessment/Plan Assessment/Plan Assess & Plan/Chief Complaint Assessment: Status post left hip replacement uncomplicated by Dr. Mckeon Hypertension Recent diagnosis of diabetes Plan: Diabetes education Accu-Cheks Monitor morning labs Pain control PT and OT YARELIS SIMON DO Feb 11, 2023 08:58
[2023-02-11] MEDS ORDERED: ASPI-1238 PO (10:26)
[2023-02-11] MEDS ORDERED: OXC5T PO (10:26)
--- NOTE | 2023-02-11 10:34 | Discharge Summary ---
Discharge Summary Hospital Course Hospital Course Date of Admission: 02/09/23 Admission Diagnosis : Left Hip Primary Osteoarthritis Family Physician/Provider: Date of Discharge: 02/11/23 Discharge Diagnosis: [ Left Hip Primary Osteoarthritis s/p Total Hip Arthroplasty] Hospital Course: [ On 02/09/23, underwent left total hip arthroplasty. Tolerated the procedure well and was sent to the med/surg floor. Began therapy on the afternoon of surgery. Began DVT prophylaxis on the day of surgery. On POD #1, progressed well with therapy. Pain was tolerable on oral medication regimen. Arrangements were made for home health. On POD #2, was ready for discharge home with home health.] Labs and Pending Lab Test: Laboratory Tests 02/10/ 11:32: Glucometer 230H 02/10/ 15:30: Glucometer 215H 02/10/ 20:15: Glucometer 217H 02/11/ 05:21: Glucometer 187H 02/11/23 05:50: White Blood Count 12.3H, Red Blood Count 3.22L, Hemoglobin 10.0L, Hematocrit 30L , Mean Corpuscular Volume 94, Mean Corpuscular Hemoglobin 31, Mean Corpuscular Hemoglobin Concent 33, Red Cell Distribution Width 12.4, Platelet Count 213, Mean Platelet Volume 10.3, Immature Granulocyte % (Auto) 1, Neutrophils (%) (Auto) 78H, Lymphocytes (%) (Auto) 13, Monocytes (%) (Auto) 8, Eosinophils (%) (Auto) 0, Basophils (%) (Auto) 0, Neutrophils # (Auto) 9.6H, Lymphocytes # (Auto) 1.6, Monocytes # (Auto) 1.0, Eosinophils # (Auto) 0.0, Basophils # (Auto) 0.0, Immature Granulocyte # (Auto) 0.1, Sodium Level 135, Potassium Level 3.8, Chloride Level 103, Carbon Dioxide Level 24, Anion Gap 8, Blood Urea Nitrogen 8, Creatinine 0.66, Estimat Glomerular Filtration Rate 91, BUN/Creatinine Ratio 12, Glucose Level 206H, Calcium Level 8.5, Corrected Calcium 9.2, Total Bilirubin 0.9, Aspartate Amino Transf (AST/SGOT) 18, Alanine Aminotransferase (ALT/SGPT) 9, Alkaline Phosphatase 69, Total Protein 5.6L, Albumin 3.1L Microbiology 02/09/23 MRSA Screen - Final, Complete MRSA not isolated Home Meds Active Oxyir Tablet (Oxycodone HCl) 5 Mg Tab 5 Mg PO Q6H PRN 7 Days Aspirin EC (Aspirin) 81 Mg Tablet.dr 81 Mg PO BID 35 Days Reported Lisinopril-Hctz 10-12.5 mg Tab (Lisinopril/Hydrochlorothiazide) 10 Mg-12.5 Mg Tablet 1 Each PO DAILY Assessment/Pt Instructions WBAT on left leg with walker. Posterior hip precautions. Dry dressing daily. Keep incision dry until follow up. Follow up appointment ~2 weeks from date of surgery. Discharge Physical Examination Vital Signs Vital Signs Date Time Temp Pulse Resp B/P (MAP) Pulse Ox O2 Delivery O2 Flow Rate FiO2 02/11/23 08:00 Room Air 02/11/23 07:58 36.6 88 18 104/53 (70) 93 02/11/23 03:25 0.00 0.00 Extremity: Other (Left Hip: Dressing C/D/I, +DF of ankle, no s/s of DVT) Allergies: Coded Allergies: No Known Drug Allergies (Unverified , 01/26/23) Discharge Summary Date of Admission Date of Discharge SHAGUFTA PALMER MD Feb 11, 2023 10:34
--- NOTE | 2023-02-11 10:35 | D/C HH Face to Face Order ---
D/C Face to Face Orders Instructions for Patient Via [facility], Patient Instructions/FollowUp: WBAT on left leg with walker. Posterior hip precautions. Dry dressing daily. Keep incision dry until follow up. Follow up appointment ~2 weeks from date of surgery. Physician to follow Patient: Ke Mckeon Discharge Diet for Home: ADA Diet Patient Data-Allergies,Ht & Wt Patient Allergies: Coded Allergies: No Known Drug Allergies (Unverified , 01/26/23) Home Health Need/Face to Face Date of Face to Face: Feb 11, 2023 Clinical Findings: Muscle weakness, Pain with ambulation I have seen Pt [id number]: Yes Discharged To: Home Diagnosis/Conditions: left hip osteoarthritis s/p adin Patient is Homebound due to: Muscle weakness, Pain w/ambulation Homebound Status Due to the above stated illness, injury or surgical procedure (medical condition or diagnosis) and associated clinical findings, the patient is homebound because of his/her inability to leave home except with aid of a supportive device and/or person AND leaving the home requires a considerable and taxing effort or is medically contraindicated. Pt req the following assistanc: Walker Home Health Nursing Orders Home Health Services Order: Physical Therapy-Evaluate & Treat Home Health Infusion Therapy Line Start Date: Feb 09, 2023 Therapy Orders Therapy Specific Orders: Gait training, Increase strength/endurance, Restore ROM Certify Stmt I certify that this patient is under my care and that I, a nurse practitioner or a physician; a addictions counselor assistant working with me, had a face to face encounter that - meets the physician face to face encounter requirements with this patient as dated. KE MCKEON MD Feb 11, 2023 10:35
[2023-02-11 11:25] VITALS: BP 110/56
--- NOTE | 2023-02-11 12:58 | Occupational Ther Daily Note ---
OT Current Status-Daily Note Subjective Pt sleeping in bed, woke to name. Pt agrees to therapy. No c/o pain. Mental Status/Objective Patient Orientation: Person, Place, Time, Situation Attachments: IV ADL-Treatment Independent with HOB raised for supine <--> sit. Independent sitting EOB. Pt educated on LBD AE to maintain hip precautions. Pt able to verbalize precautions. After verbal/demonstration of how to use LH sponge, material expeditor and sock aide, pt was able to return demonstration with AE. Pt instructed to where to find/purchase items. Discussion of home bathroom, pt has tub/shower. CALDER[place]N recommended tub transfer bench, pt knew what equipment was. Pt verbalized understanding of education for tub transfer bench. After session, pt lying in bed with call light/phone in reach. All needs met in room. Therapy Code Descriptions/Definitions Functional [place] Measure: 0=Not Assessed/NA 4=Minimal Assistance 1=Total Assistance 5=Supervision or Setup 2=Maximal Assistance 6=Modified [place] 3=Moderate Assistance 7=Complete IndependenceSCALE: Activities may be completed with or without assistive devices. 3-Ysgplllvtc-vxoljvn completes the activity by him/herself with no assistance from a helper. 5-Set-up or Clean-up Assistance-helper sets up or cleans up; patient completes activity. [place] assists only prior to or following the activity. 4-Supervision or Touching Assistance-helper provides verbal cues and/or touching/steadying and/or contact guard assistance as patient completes activity. Assistance may be provided throughout the activity or intermittently. 3-Partial/Moderate Assistance-helper does LESS THAN HALF the effort. [place] lifts, holds or supports trunk or limbs, but provides less than half the effort. 2-Substantial/Maximal Assistance-helper does MORE THAN HALF the effort. [place] lifts or holds trunk or limbs and provides more than half the effort. 3-Ybydedifk-puefaz does ALL the effort. Patient does none of the effort to complete the activity. Or, the assistance of 2 or more helpers is required for the patient to complete the activity. If activity was not attempted, code reason: 7-Patient Refused. 9-Not Applicable-not attempted and the patient did not perform the activity before the current illness, exacerbation or injury. 10-Not Attempted due to Environmental Limitations-(lack of equipment, weather restraints, etc.). 88-Not Attempted due to Medical Conditions or Safety Concerns. Lower Body Dressing (QC): 4 On/Off Footwear: 5 OT Longterm Goals Salesperson [employer] Goals Eating (QC): 6 Oral Hygiene (QC): 6 Toileting Hygiene (QC): 6 Shower/Bathe Self (QC): 5 Upper Body Dressing (QC): 6 Lower Body Dressing (QC): 6 On/Off Footwear (QC): 6 1=Demonstrate adherence to instructed precautions during ADL tasks. 2=Patient will verbalize/demonstrate understanding of assistive devices/modifications for ADL. 3=Patient will improve strength/tolerance for activity to enable patient to perform ADL's. OT Education/Plan Problem List/Assessment Assessment: Decreased Activ Tolerance, Impaired Self-Care Skills Discharge Recommendations Plan/Recommendations: Continue POC Treatment Plan/Plan of Care Patient would benefit from OT for education, treatment and training to promote independence in ADL's, mobility, safety and/or upper extremity function for ADL's. Plan of Care: ADL Retraining, Functional Mobility, Group Exercise/Act as Ind, UE Funct Exercise/Act Treatment Duration: Feb 14, 2023 Frequency: 3 times per week (3-5 times per week) Estimated Hrs Per Day: .25 hour per day Agreement: Yes Rehab Potential: Good Time Start Time: 11:30 Stop Time: 11:50 DATE: Feb 11, 2023 Total Time Billed (hr/min): 20 Billed Treatment Time 1 visit-ADL 1 (20 min) ROB BUTLER Feb 11, 2023 12:58
[2023-02-11 13:11] VITALS: BP 110/56
--- NOTE | 2023-02-12 10:59 | Diagnostic Imaging Report ---
INDICATION: Postop left hip arthroplasty. TECHNIQUE: AP pelvis obtained at 09:44 a.m. FINDINGS: There is a well-aligned left hip prosthesis with no acute fracture or acute bony abnormality. There is no unexpected radiopaque foreign body post surgery. IMPRESSION: Well-aligned new left hip prosthesis with no unexpected foreign body post surgery. Dictated by: Dictated on workstation # [id number]
== END 2023-02-11 13:15 | disposition home health service (06) ==
LOC: SDC 06:09 → EDSTATUS 07:30 → 4TH 10:32 → SDC 02-11 13:15
PROVIDERS: ATTEND Orthopaedic Surgery
DX: M16.12 Unilateral primary osteoarthritis, left hip (principal); I10 Essential (primary) hypertension; E11.9 Type 2 diabetes mellitus without complications; E66.9 Obesity, unspecified; Z68.30 Body mass index [BMI] 30.0-30.9, adult; Z87.891 Personal history of nicotine dependence
CPT/HCPCS: 27130; 72170; 80053; 82947 ×2; 85025; 87081; 94664; 97162; 97166; 97530; 97535; C1776 ×4; 36415

== ENCOUNTER → 2023-03-31 | Outpatient (CLI) | payer BC, MEDICARE ==
[~2023-03-31] MED LIST changes: +ASPI-1238 PO; +OXC5T PO
--- NOTE | 2023-03-31 15:05 | Diagnostic Imaging Report ---
INDICATION: Pain. Two-view left hip performed A total hip replacement appeared intact. No fracture to the residual bony structures. Alignment anatomic. IMPRESSION: Stable well aligned total left hip. Dictated by: Dictated on workstation # [id number]
== END ==
LOC: ORTHO 11:09
PROVIDERS: ATTEND Orthopaedic Surgery
DX: M25.552 Pain in left hip (principal); Z96.642 Presence of left artificial hip joint
CPT/HCPCS: 73502

== ENCOUNTER → 2023-05-12 | Outpatient (CLI) | payer BC, MEDICARE | LOC: ORTHO 15:38 | PROVIDERS: ATTEND Orthopaedic Surgery | DX: Z47.89 Encounter for other orthopedic aftercare (principal) ==